=== PATIENT | male | born 1955 | race Caucasian/White ===

== ENCOUNTER 2018-07-21 15:19 | Emergency (ER) | payer OTHER ==
[~2018-07-21] VITALS: Ht 182.9 cm; Wt 76.7 kg
[2018-07-21 16:06] LABS: URINE BILIRUBIN NEGATIVE (Negative); URINE BLOOD NEGATIVE (Negative); URINE CLARITY CLEAR; URINE COLOR YELLOW; URINE GLUCOSE-RANDOM* NEGATIVE (Negative); URINE KETONES NEGATIVE (Negative); URINE LEUKOCYTES NEGATIVE (Negative); URINE NITRITE NEGATIVE (Negative); URINE PROTEIN (DIPSTICK) NEGATIVE (Negative); URINE UROBILINOGEN 0.2 E.U./dl (0.2-1.0)
[2018-07-21 16:14] LABS: AMP/METHAMP Negative (Negative); BARBITURATES Negative (Negative); BENZODIAZEPINES Negative (Negative); COCAINE Negative (Negative); METHADONE Negative (Negative); OPIATES Negative (Negative); PCP Negative (Negative)
[2018-07-21 16:40] LABS: ABSOLUTE NEUTROPHILS 5.2 thou/uL (1.4-8.2); EOSINOPHILS 0.7 % (0.0-3.0); LYMPHOCYTES 18.8 % (24.0-44.0); MCH 33.8 pg (26.0-34.0); MCHC 34.4 g/dL (28.0-37.0); MCV 98.1 fL (80.0-100.0); MONOCYTES 9.7 % (1.0-8.0); PLATELET COUNT 179 thou/uL (150-400); POLYS 69.8 % (36.0-66.0); RBC 2.96 mil/uL (4.50-6.00); RDW 14.2 % (10.5-14.5); WBC 7.4 thou/uL (4.0-11.0)
[2018-07-21 16:53] LABS: ANION GAP 7 mmol/L (7-16); BUN 11 mg/dL (7-18); CHLORIDE 102 mmol/L (98-107); CO2 29 mmol/L (21-32); CREATININE 0.8 mg/dL (0.7-1.3); GLUCOSE 99 mg/dL (74-106); POTASSIUM 4.2 mmol/L (3.5-5.1); SODIUM 138 mmol/L (136-145)
[2018-07-21 16:59] LABS: ALBUMIN 2.5 g/dL (3.4-5.0); SGOT 21 U/L (15-37); SGPT 27 U/L (30-65); TOTAL BILIRUBIN 0.3 mg/dL (<0.1-1.0); TOTAL PROTEIN 6.4 g/dL (6.4-8.2)
[2018-07-21 17:26] LABS: SALICYLATE < 2.8 mg/dL (2.8-20.0)
[2018-07-21 19:34] VITALS: BP 124/39
== END 2018-07-21 19:35 ==
LOC: ER 15:19
PROVIDERS: Physician Assistant
DX: R45.1 Restlessness and agitation (principal); F03.90 Unspecified dementia, unspecified severity, without behavioral disturbance, psychotic disturbance, mood disturbance, and anxiety; G62.9 Polyneuropathy, unspecified; I10 Essential (primary) hypertension; J44.9 Chronic obstructive pulmonary disease, unspecified

== ENCOUNTER 2018-09-25 23:03 | Emergency (ER) | payer OTHER ==
[~2018-09-25] VITALS: Ht 182.9 cm; Wt 88.5 kg
[2018-09-26 00:20] LABS: HEMATOCRIT 29.3 % (42.0-52.0); HEMOGLOBIN 9.8 gm/dL (14.0-18.0); MCHC 33.6 g/dL (28.0-37.0); MCV 89.3 fL (80.0-100.0); PLATELET COUNT 151 thou/uL (150-400); RBC 3.28 mil/uL (4.50-6.00); RDW 14.5 % (10.5-14.5); WBC 4.5 thou/uL (4.0-11.0)
[2018-09-26 00:36] LABS: ANION GAP 6 mmol/L (7-16); BUN 22 mg/dL (7-18); CALCIUM 8.7 mg/dL (8.5-10.1); CHLORIDE 104 mmol/L (98-107); CO2 29 mmol/L (21-32); CREATININE 0.9 mg/dL (0.7-1.3); GLUCOSE 91 mg/dL (74-106); SODIUM 139 mmol/L (136-145)
[2018-09-26 00:44] LABS: TROPONIN-I <0.06 ng/mL (<0.06)
[2018-09-26 01:34] LABS: ABSOLUTE NEUTROPHILS 2.7 thou/uL (1.4-8.2)
[2018-09-26 01:35] LABS: PLATELET ESTIMATE NORMAL
[2018-09-26 02:53] LABS: URINE BILIRUBIN NEGATIVE (Negative); URINE BLOOD NEGATIVE (Negative); URINE CLARITY CLEAR; URINE COLOR YELLOW; URINE GLUCOSE-RANDOM* NEGATIVE (Negative); URINE KETONES 1+ (Negative); URINE LEUKOCYTES-REFLEX NEGATIVE (Negative); URINE NITRITE-REFLEX NEGATIVE (Negative); URINE PROTEIN (DIPSTICK) TRACE (Negative); URINE SPECIFIC GRAVITY 1.025 (1.005-1.035)
[2018-09-26] MEDS ORDERED: VITAMIN D5000 UNIT PO (02:54)
[2018-09-26] MEDS ORDERED: VITAMIN B-12500 MCG PO (02:54)
[2018-09-26] MEDS ORDERED: DEPAKOTE500 MG PO (02:55)
[2018-09-26] MEDS ORDERED: ELIQUIS5 MG PO (02:59)
[2018-09-26] MEDS ORDERED: FOLIC ACID1 MG PO (03:00)
[2018-09-26] MEDS ORDERED: LISINOPRIL5 MG PO (03:00)
[2018-09-26] MEDS ORDERED: NEURONTIN 300300 M1 PO (03:00)
[2018-09-26] MEDS ORDERED: MIRALAX17 GM PO (03:01)
[2018-09-26] MEDS ORDERED: ATIVAN1 MG PO (03:01)
[2018-09-26] MEDS ORDERED: B-1100 MG PO (03:02)
[2018-09-26] MEDS ORDERED: TRAZODONE HCL50 MG PO (03:02)
[2018-09-26] MEDS ORDERED: FLOMAX0.4 MG PO (03:02)
[2018-09-26] MEDS ORDERED: ZYPREXA5 MG PO (03:03)
[2018-09-26 04:58] VITALS: BP 102/48
--- NOTE | 2018-09-26 16:04 | EKG ---
[place] [address] [facility] [address] ELECTROCARDIOGRAM REPORT Name: ANGELALVARADO Room #: DEP DENNISE Hernandez#: [id number] ������������������ Admission: 09/25/18 ������������������ Attend Phys: Discharge: 09/26/18 ������������������ Date of : 51 Report #: [id number] ����������������������������������������������������������������� [id number] THIS REPORT FOR: //name// [facility] ED Test Date: 2018-09-26 Test Time: 02:06:58 Pat Name: ALVARADO ORTIZ Department: Room: Gender: Autism Teacher: Zuri : 1955 Requested By: Burke Mckeon Order Number: [id number] MD: Masoud Howe Measurements Intervals [place] Rate: 61 P: IN: QRS: 82 QRSD: 110 T: 65 QT: 418 QTc: 421 Interpretive Statements Atrial fibrillation Anteroseptal infarct, age indeterminate No previous ECG available for comparison Electronically Signed On 09-26-2018 16:04:01 CDT by Masoud Howe [email or web address] ��������������������������������������������� <ELECTRONICALLY SIGNED> ���������������������������������������� By: Masoud Howe MD ��������������������������������������������� 09/26/18 1604 0206 0206 Masoud Howe MD /LINDSEY
== END 2018-09-26 05:00 | disposition home or self-care (01) ==
LOC: ER 23:03
PROVIDERS: Emergency Medicine
DX: R60.0 Localized edema (principal); F03.90 Unspecified dementia, unspecified severity, without behavioral disturbance, psychotic disturbance, mood disturbance, and anxiety; G62.9 Polyneuropathy, unspecified; I10 Essential (primary) hypertension; J44.9 Chronic obstructive pulmonary disease, unspecified

== ENCOUNTER 2019-04-13 03:22 | Inpatient (IN) | payer OTHER ==
[2019-04-13] VITALS (64 sets, daily range): BP systolic 75–141; BP diastolic 37–63
[~2019-04-13] VITALS: Ht 15.2 cm; Wt 87.8 kg
--- NOTE | ~2019-04-13 | HC ---
[facility] [place] [address] CONSULTATION Name: ALVARADO ORTIZ Room #: 238-P [facility] IN M.R.#: [id number] Admission: 04/13/19 Attend Phys: Tito Queen MD Discharge: Date of : 51 Report #: [id number] THIS REPORT FOR: //name// CC: Tito Calix DATE OF SERVICE: 04/18/2019 CHIEF COMPLAINT: Severe sepsis. HISTORY OF PRESENT ILLNESS: The patient is a 64-year-old male who initially presented to [facility] with severe sepsis on 04/13/2019. He was found unconscious at [facility]. The patient had concern for aspiration pneumonia. Certainly, there is concern for dysphagia. 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 The patient has had acute renal failure. Additionally, has a significant anemia. He required pressors initially for septic shock; however, he has been able to be weaned off these. Did require intubation; however, he has had a good weaning protocol yesterday. Family at this time is actually interested in a palliative type care given his overall presentation, his worsening dementia, delirium and dysphagia rather than pursuing any other kind of permanent feeding tube for which the patient currently has an NG tube. The patient is currently not able to respond significantly as he is intubated. He has had sedation, but currently this is off. PAST MEDICAL HISTORY: Korsakoff dementia, alcohol abuse, history of type 2 diabetes, anemia, atrial fibrillation, and dysphagia. ALLERGIES: No known drug allergies. CODE STATUS: Currently decided to be no code. SOCIAL HISTORY: Sister is his surrogate decision maker at this time. This has been confirmed by case management. FAMILY HISTORY: Noncontributory, although father is currently living. He himself has congestive heart failure and is currently in the hospital. PAST SURGICAL HISTORY: Unknown surgical history. MEDICATIONS: At my arrival, the patient did have propofol, fentanyl, diltiazem, verapamil, Levophed p.r.n., Humalog, Depakote, magnesium, potassium, metoprolol, ampicillin, and Lasix. REVIEW OF SYSTEMS: Unable to obtain due to present medical condition. [facility] [address] [place] [address] CONSULTATION Name: ALVARADO ORTIZ Room #: 238-P [facility] IN ..#: [id number] Admission: 04/13/19 Attend Phys: Tito Queen MD Discharge: Date of : 51 Report #: [id number] PHYSICAL EXAMINATION: VITAL SIGNS: Temperature 38.2, pulse 72, respirations 16, blood pressure 105/67, 98% on assist-control ventilation. GENERAL: He appears to be in no acute distress at this time, not alert. HEENT: After extubation, he had no scleral icterus and conjunctival injection witnessed. CARDIOVASCULAR: Regular rate and rhythm without murmur. LUNGS: Clear to auscultation anteriorly with mechanical breath sounds initially, though after extubation, he had significant secretions auscultated. ABDOMEN: Diminished bowel sounds, not significantly distended. EXTREMITIES: Diffuse edema is noted. LABORATORY DATA: These include Creatinine 0.5, hemoglobin 7.4. ASSESSMENT AND PLAN: 1. Severe sepsis. This is likely secondary to dysphagia. The patient's surrogate decision maker does not wish to pursue any kind of feeding tube. She is wishing to pursue a palliative route. Did discuss the possibility of inpatient hospice and he may be most suited for this transfer as the patient needs a significant medical care at this time. Another option would be long-term care with hospice. Certainly sounds, at home with hospice is not a good option. Did also discuss code status, confirmed DNR status. The patient's sister is desiring extubation in palliative manner. This was performed while I was present. Medications including morphine, Ativan written for comfort as well as discussions with regards to increased secretions, which are normal process as well as apneic episodes. Did demonstrate some mild apnea after the removal of ventilation, but overall appeared to be comfortable. Did have voluntary discussion with the surrogate decision maker with regards to all of these issues. I spent approximately 40 minutes in discussion of advanced care planning. 2. Dysphagia, again this is likely to cause recurrence of aspiration. This is the major reason for his imminent poor prognosis. 3. Dementia, again a major underlying reason for his poor prognosis. This is possibly alcohol related, but certainly given the previously described severity, certainly, he would qualify for hospice care services. 4. Anemia. Family is not wishing to have significant interventions at this time. I agree with palliative care. We will initially wait for stabilization in the hospital, but if stabilized to an extent, the patient could be transferred to an inpatient hospice service. I have discussed this with case management as well as his family. Thank you very much for this consultation. By: [id number] Tony Soares DO /nt
--- NOTE | ~2019-04-13 | EKG ---
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: Joon SANDOVAL : 1955 Requested By: Cleo Michael Order Number: [id number] MD: Measurements Intervals [place] Rate: 69 P: 76 [place]: 141 QRS: 70 QRSD: 92 T: 68 QT: 402 QTc: 431 Interpretive Statements Sinus rhythm Abnormal R-wave progression, late transition Compared to ECG 04/14/2019 04:55:16 Atrial premature complex(es) no longer present repolarization abnormality no longer present Electronically Signed On 04-16-2019 16:44:57 SECOND VP HR ASSESSMENT by Colton Cavazos [email or web address] By: 1 1 [place], [place] /EPI
[~2019-04-13 03:22] MED LIST: ATIVAN1 MG PO; B-1100 MG PO; DEPAKOTE500 MG PO; ELIQUIS5 MG PO; FLOMAX0.4 MG PO; FOLIC ACID1 MG PO; LISINOPRIL5 MG PO; MIRALAX17 GM PO; NEURONTIN 300300 M1 PO; TRAZODONE HCL50 MG PO; VITAMIN B-12500 MCG PO; VITAMIN D5000 UNIT PO; ZYPREXA5 MG PO
[2019-04-13 03:56] LABS: BE(vivo) -6.1 mmol/L (-2 to +3); HCO3 20.6 mmol/L (22.0-26.0); PCO2 45.3 mmHg (35.0-45.0); PO2 102.9 mmHg (80.0-100.0)
[2019-04-13 03:57] LABS: pH 7.275 (7.360-7.450)
[2019-04-13 04:24] LABS: HEMATOCRIT 33.2 % (42.0-52.0); HEMOGLOBIN 10.9 gm/dL (14.0-18.0); MCH 31.8 pg (26.0-34.0); MCHC 32.7 g/dL (28.0-37.0); MCV 97.1 fL (80.0-100.0); PLATELET COUNT 271 thou/uL (150-400); RBC 3.42 mil/uL (4.50-6.00); RDW 14.5 % (10.5-14.5); WBC 18.3 thou/uL (4.0-11.0)
[2019-04-13 04:25] LABS: ANION GAP 9 mmol/L (7-16); BUN 26 mg/dL (7-18); CALCIUM 7.9 mg/dL (8.5-10.1); CHLORIDE 106 mmol/L (98-107); CO2 25 mmol/L (21-32); CREATININE 1.4 mg/dL (0.7-1.3); GLUCOSE 162 mg/dL (74-106); SODIUM 140 mmol/L (136-145)
[2019-04-13 04:31] LABS: ALBUMIN 1.9 g/dL (3.4-5.0); DIRECT BILIRUBIN < 0.1 mg/dL (<0.1-0.3); SGOT 41 U/L (15-37); SGPT 9 U/L (30-65); TOTAL BILIRUBIN 0.4 mg/dL (<0.1-1.0)
--- NOTE | 2019-04-13 04:40 | NUR ---
RECEIVED PERMISSION TO TREAT FROM SISTER SUNNY, WHO HAS POA
[2019-04-13 05:16] LABS: ABSOLUTE NEUTROPHILS 13.9 thou/uL (1.4-8.2)
[2019-04-13 05:17] LABS: ANISOCYTOSIS 1+; PLATELET ESTIMATE NORMAL; POIKILOCYTOSIS 1+
[2019-04-13 05:54] LABS: URINE BILIRUBIN NEGATIVE (Negative); URINE BLOOD 2+ (Negative); URINE CLARITY CLEAR; URINE COLOR YELLOW; URINE GLUCOSE-RANDOM* NEGATIVE (Negative); URINE KETONES NEGATIVE (Negative); URINE LEUKOCYTES-REFLEX NEGATIVE (Negative); URINE NITRITE-REFLEX NEGATIVE (Negative); URINE PROTEIN (DIPSTICK) 1+ (Negative)
[2019-04-13 06:00] LABS: BE(vivo) -4.3 mmol/L (-2 to +3); HCO3 20.7 mmol/L (22.0-26.0); PCO2 37.8 mmHg (35.0-45.0); PO2 240.5 mmHg (80.0-100.0); pH 7.357 (7.360-7.450); sO2 99.5 % (92.0-98.0)
[2019-04-13 06:02] LABS: AMP/METHAMP Negative (Negative); BARBITURATES Negative (Negative); BENZODIAZEPINES Negative (Negative); COCAINE Negative (Negative); METHADONE Negative (Negative); OPIATES Negative (Negative); PCP Negative (Negative)
[2019-04-13 06:12] LABS: BACTERIA-REFLEX 1-9 Few /HPF (None Seen); CRYSTALS None Seen /LPF (None Seen); HYALINE CASTS 4-10 Moderate /LPF (None Seen); MUCUS 0-3 Light strn/LPF (None Seen); SQUAMOUS 4-10 Moderate /LPF (0-3); URINE WBC-REFLEX 0-5 Rare /HPF (0-5)
[2019-04-13 07:15] LABS: MAGNESIUM 1.6 mg/dL (1.8-2.4); TROPONIN-I <0.06 ng/mL (<0.06)
--- NOTE | 2019-04-13 07:28 | NUR ---
PATIENT ARRIVED TO ICU AT 714 WITH EMS, DIGITAL MEDIA SPECIALIST AND RT.
[2019-04-13 08:11] LABS: APTT 26.7 Seconds (24.5-32.8); INR 1.5; PROTIME 15.1 Seconds (9.3-11.4)
[2019-04-13 08:37] LABS: FIBRINOGEN 427.9 mg/dL (210-360)
[2019-04-13 09:32] LABS: CALCIUM 7.8 mg/dL (8.5-10.1); CREATININE 1.1 mg/dL (0.7-1.3)
[2019-04-13 09:36] LABS: POTASSIUM 3.6 mmol/L (3.5-5.1)
--- NOTE | 2019-04-13 11:43 | NUR ---
CONSULTED TO PLACE A CENTRAL LINE FOR A PATIENT ADMITTED TO THE ICU FOR SEPSIS POST INTUBATION. ORDER AND CONSENT NOTED. THE RIGHT IJ WAS WIDLEY PATENT. A #6F TRIPLE LUMEN POWER INJECTABLE JACC CATHETER WAS PLACED PER HOSPITAL POLICY AFTER A BEDSIDE TIMEOUT WAS COMPLETED. LINE WAS 25CM AND ADVANCED TO 5CM EXTERNAL. A STAT CHEST XRAY CONFIRMED LINE IN CORRECT POSITION BY RADIOLOGIST. LINE RELEASED FOR USE
--- NOTE | 2019-04-13 15:19 | NUR ---
INITIAL ASSESSMENT: DESTINEE reviewed chart. Pt was admitted from [facility] due to septic shock/pneumonia. Pt is currently intubated. Pt is on IV abx. Pt with hx of ETOH induced dementia/HTN/COPD. Pt's sister is his DPOA and was notified of pt's admission. regional planner faxed clinical info to [facility] for review. [place] post-acute liaison notified of admission, who states they will be able to accept pt back when he is medically stable. No weekend discharge planned. DESTINEE is following to assist as needed with discharge planning.
--- NOTE | 2019-04-13 16:01 | NUR ---
FAXED CLINICAL UPDATE TO [facility] SPOKE WITH ELEONORA IN ADM SHE RECEIVED UPDATE AND WILL ACCEPT PT BACK ONCE MEDICALLY STABLE. DP TO FOLLOW.
--- NOTE | 2019-04-13 16:11 | EKG ---
[address] [address] ELECTROCARDIOGRAM REPORT Name: ALVARADO ORTIZ Room #: 238-P ADM IN M.R.#: [id number] Admission: 04/13/19 Attend Phys: Tito Queen MD Discharge: Date of : 51 Report #: [id number] THIS REPORT FOR: //name// [facility] ED Test Date: 2019-04-13 Test Time: 04:53:36 Pat Name: ALVARADO ORTIZ Department: Room: 238 P Gender: M Medical Device Sales Consultant: MESFIN : 1955 Requested By: Christiano Jean Order Number: [id number] MD: Colton Cavazos Measurements Intervals [place] Rate: 115 P: DE: QRS: 69 QRSD: 89 T: -69 QT: 281 QTc: 389 Interpretive Statements Atrial fibrillation Poor R wave progression Compared to ECG 09/26/2018 02:06:58 Atrial fibrillation has replaced sinus rhythm Electronically Signed On 04-13-2019 16:11:03 ICE GUARD SKATING RINK by Colton Cavazos [email or web address] <ELECTRONICALLY SIGNED> By: Colton Cavazos MD, [facility] 04/13/19 1611 045 045 Colton Cavazos MD, FACC /EPI
[2019-04-13 17:51] LABS: CALCIUM 8.1 mg/dL (8.5-10.1); CREATININE 0.8 mg/dL (0.7-1.3); POTASSIUM 3.4 mmol/L (3.5-5.1)
[2019-04-13 21:52] LABS: CALCIUM 8.1 mg/dL (8.5-10.1); CREATININE 0.7 mg/dL (0.7-1.3); POTASSIUM 3.3 mmol/L (3.5-5.1)
[2019-04-14] VITALS (93 sets, daily range): BP systolic 85–156; BP diastolic 42–99
--- NOTE | 2019-04-14 05:40 | NUR ---
PT. HEART RHYTHM CHANGED THIS AM AROUND 0430. EKG OBTAINED AND CHARTED, REPORTS A-FIB. NURSE PRACTIOTIONER CALLED, AZAEL RECEIVED. ASSESSMENTS AND VITAL SIGNS CHARTED. MEDICATION TITRATION CHARTED. CONTINUE TO FOLLOW POC. WILL CONTINUE TO MONITOR.
[2019-04-14 05:46] LABS: ALBUMIN 1.6 g/dL (3.4-5.0); CALCIUM 7.9 mg/dL (8.5-10.1); CREATININE 0.7 mg/dL (0.7-1.3); POTASSIUM 3.6 mmol/L (3.5-5.1); TOTAL BILIRUBIN 0.5 mg/dL (<0.1-1.0); TOTAL PROTEIN 5.5 g/dL (6.4-8.2)
[2019-04-14 11:55] LABS: HEMATOCRIT 30.9 % (42.0-52.0); HEMOGLOBIN 10.2 gm/dL (14.0-18.0); MCH 31.4 pg (26.0-34.0); MCHC 32.9 g/dL (28.0-37.0); MCV 95.4 fL (80.0-100.0); RBC 3.24 mil/uL (4.50-6.00); RDW 14.4 % (10.5-14.5); WBC 18.2 thou/uL (4.0-11.0)
[2019-04-14 11:59] LABS: PLATELET COUNT 166 thou/uL (150-400)
[2019-04-14 12:28] LABS: ABSOLUTE NEUTROPHILS 14.7 thou/uL (1.4-8.2); METAMYELOCYTES 3 %; PLATELET ESTIMATE NORMAL
--- NOTE | 2019-04-14 15:59 | NUR ---
PT IS FOLLOWING COMANDS CHANGED SEDATION PER DR. HDZ. DC VERSED AND FENTANYL DRIP AT THIS TIME. FAMILY AT BEDSIDE FOR SUPPORT. PT IS COMFORTALBE. BILATERAL WRIST RESTRAINTS LUNGS ARE COARSE. REMAINS ON VENT AT THIS TIME. BLOOD PRESSURE IS STABLE ON LEVO DRIP FOR BLOOD PRESSURE MANAGEMENT. LUJAN TO DD WITH IRVIN URINE PRESENT. SCDS BILATERAL AND BOOTS ON PT AT THIS TIME. NO ISSUES OR CONCERNS NOTED AT THIS TIME.
--- NOTE | 2019-04-14 21:49 | NUR ---
SEDATION VACATION PERFORMED AT 1930, PT ON PROPOFOL 25MCGS/KG/MIN, TURNED OFF DURING SEDATION VACATION FOR 20 MINS. PT DIDN'T FOLLOW COMMANDS. REDRAWS FROM PAINFUL STIMULI. BITES ON BITE BLOCK. TREMORS NOTED DURING ASSESSMENT, AND PATIENT RESIST TURNS.VSS, LOW GRADE TEMP. COOLING MEASURES IMPLEMENTED. TOLERATING VENT SETTINGS. TITRATING PATIENT OFF LEVOPHED. WILL CONTINUE TO MONITOR.
--- NOTE | 2019-04-14 23:36 | NUR ---
TITRATED OFF LEVOPHED AT 2200. BP REMAINS STABLE. WILL CONTINUE TO MONITOR
[2019-04-15] VITALS (59 sets, daily range): BP systolic 83–148; BP diastolic 39–84
--- NOTE | 2019-04-15 01:00 | NUR ---
PT STARTED ON CARDIZEM AT 0005, HR GOING UP TO THE 130S WITHOUT SUSTAINING. TALKED TO MANOHAR ARIZMENDI ABOUT PT BEING IN AFIB, HR IN 130S, AND STATUS. WILL CONTINUE TO MONITOR. REPORT GIVEN TO NURY LOMBARDO
--- NOTE | 2019-04-15 06:49 | NUR ---
PT WAS AN ER ADMIT. PT IS ADMITTED WITH ACTIVE RECTAL BLEEDING AND IS ASYMPOTOMATIC. SPOUSE AT BEDSIDE. PT IS ALERT BUT CONFUSED AND FORGETFUL. NO SIGN OF DISTRESS NOTED IN PT. ADMISSION ASSESSMENT AND EDUCATION COMPLETED VIA SPOUSE. CONSENT BINDU. PATIENT CONTINUES TO HAVE BRIGHT RED BLOOD WITH CLOT. H&H STABLE. PT IS NPO FOR A COLONOSCOPY THIS AM. VITAL SIGNS STABLE. DENIES ANY FURTHER NEEDS AT THIS TIME.
--- NOTE | 2019-04-15 07:01 | NUR ---
ASSUMED PT CARE AT 0000. PT IS INTUBATED. AND SEDATED. NO SIGN OF DISTRESS NOTED IN PATIENT. ASSESSMENT COMPLETED AND DOCUMENTED. PT IS TURNED. NO SIGN OF DISTRESS NOTED IN PT. PT IS STABLE. DENIES ANY NEEDS AT THIS TIME
[2019-04-15 10:41] LABS: CALCIUM 8.4 mg/dL (8.5-10.1); CREATININE 0.5 mg/dL (0.7-1.3)
--- NOTE | 2019-04-15 11:57 | HC ---
[facility] [place] [address] CONSULTATION Name: ANGELALVARADO Room #: 238-P [facility] IN M.R.#: [id number] Admission: 04/13/19 Attend Phys: Tito Queen MD Discharge: Date of : 51 Report #: [id number] THIS REPORT FOR: //name// CC: Tito Calix DATE OF SERVICE: 04/13/2019 HISTORY OF PRESENT ILLNESS: This is a 64-year-old male patient who presented by EMS from a [facility] after having been found unresponsive. He was intubated as his sats were low and he has been brought to the Intensive Care Unit. He was noted to have a skin tear to his forearm and ulcerations to his sacrum and heel and I have been asked to see him with regard to wound care. He can provide no information about himself as he is intubated. PAST MEDICAL HISTORY: Per the records includes alcohol-induced dementia, withdrawal, delirium, muscle wasting and atrophy, cognitive communication deficits, hyponatremia, neuropathy, hypertension, COPD, benign prostatic hypertrophy, and type 2 diabetes mellitus. SOCIAL HISTORY: Includes a history of drinking 6-12 beers per day, a [id number] history of smoking. FAMILY HISTORY: Unknown. MEDICATIONS: Listed include vitamin D3, vitamin B12, Depakote, Eliquis, folic acid, Neurontin, Zestril, Ativan, MiraLax, Flomax, thiamine, trazodone, Desyrel, Zyprexa. ALLERGIES: None. REVIEW OF SYSTEMS: Unobtainable due to the patient being intubated on a respirator and unable to answer any questions. PHYSICAL EXAMINATION: VITAL SIGNS: Include temperature 37.3, pulse rate 94, respiratory rate 15, blood pressure 75/45. GENERAL: This is a chronically ill-appearing male patient who appears to be mostly sedated. HEENT: Head normocephalic. NECK: Supple. Nose is clear. Orally, he is intubated. LUNGS: Diminished. HEART: Regular rate and rhythm without murmur. ABDOMEN: Soft. EXTREMITIES: Examination of the pelvic region demonstrates a stage 3 pressure ulceration into the sacrum. It is relatively superficial and clean. He has a [facility] [address] [place] [address] CONSULTATION Name: ALVARADO ORTIZ Room #: 238-P [facility] IN M.R.#: [id number] Admission: 04/13/19 Attend Phys: Tito Queen MD Discharge: Date of : 51 Report #: [id number] small ulceration to his left medial heel as well as a moderate sized skin tear to the right forearm. NEUROLOGIC: The patient is sedated and on a respirator and a full neurological assessment is not able to be obtained. LABORATORY DATA: Sodium 141, potassium 3.6, chloride 108, BUN 22, creatinine 1.1, albumin is 1.9. White blood cell count 18.3, hemoglobin of 10.9. CLINICAL IMPRESSION: 1. Skin tear/traumatic wound to the right forearm. 2. Stage 3 pressure ulceration to the sacrum. 3. Unstageable pressure ulcer to the left medial heel. 4. Respiratory failure. 5. Hypertension. 6. History of alcohol abuse. RECOMMENDATIONS: At this point in time, the patient will be placed on low air loss mattress, q.2 hour turning and repositioning, will recommend zinc oxide barrier cream to the sacral gluteal region b.i.d. and p.r.n. He will need PRAFO boots, Aquacel AG and Bordered foam to the left forearm. He will need aggressive nutritional support. I appreciate being asked to see him in consultation. <ELECTRONICALLY SIGNED> By: Michael Felix MD 04/15/19 1157 2139 2357 Michael Felix MD /nt
--- NOTE | 2019-04-15 13:13 | EKG ---
[place] [address] [address] [place] [address] ELECTROCARDIOGRAM REPORT Name: AASHISH FUNG Room #: 238-P ADM IN M.R.#: [id number] Admission: 04/13/19 Attend Phys: Tito Queen MD Discharge: Date of : 51 Report #: [id number] THIS REPORT FOR: //name// [facility] Test Date: 2019-04-14 Test Time: 04:55:16 Pat Name: aashish fung Department: Room: Gender: M Pin Drafter: nickchadd : 1955 Requested By: Order Number: [id number] MD: Colton Cavazos Measurements Intervals [place] Rate: 104 P: [place]: QRS: 70 QRSD: 74 T: 57 QT: 400 QTc: 527 Interpretive Statements Sinus rhythm with frequent and consecutive atrial premature complexes Low voltage, extremity leads Borderline repolarization abnormality Prolonged QT interval No previous ECG available for comparison Electronically Signed On 04-15-2019 13:13:37 UPPER INSPECTOR by Colton Cavazos [email or web address] <ELECTRONICALLY SIGNED> By: Colton Cavazos MD, [facility] 04/15/19 1313 0455 0455 Colton Cavazos MD, FACC /EPI
[2019-04-15 16:26] LABS: HEMATOCRIT 27.6 % (42.0-52.0); HEMOGLOBIN 9.2 gm/dL (14.0-18.0); MCH 31.9 pg (26.0-34.0); MCHC 33.3 g/dL (28.0-37.0); MCV 95.7 fL (80.0-100.0); RBC 2.89 mil/uL (4.50-6.00); RDW 14.6 % (10.5-14.5); WBC 10.1 thou/uL (4.0-11.0)
[2019-04-15 17:12] LABS: MAGNESIUM 1.8 mg/dL (1.8-2.4); POTASSIUM 3.8 mmol/L (3.5-5.1)
--- NOTE | 2019-04-15 18:12 | NUR ---
PATIENT ON LIGHT SEDATION, WEANING TRIAL COMPLETED FOR 20 MINUTES PATIENT DID NOT TOLERATE WELL. TUBE FEEDING STARTED. RESTRAINTS PRESENT. PATIENT ABLE TO OPEN EYES WHEN NAME CALLED AND SLIGHTLY SQUEEZE RIGHT HAND. FAMILY UPDATED ON THE PLAN OF CARE. ELECTROLYTES CLOSELY MONITORED. NO SIGNS OF ACUTE DISTRESS NOTED AT THIS TIME. WILL CONTINUE TO MONITOR.
[2019-04-16] VITALS (49 sets, daily range): BP systolic 85–131; BP diastolic 38–54
[2019-04-16 04:51] LABS: HEMATOCRIT 26.5 % (42.0-52.0); HEMOGLOBIN 8.7 gm/dL (14.0-18.0); MCH 31.8 pg (26.0-34.0); MCHC 32.9 g/dL (28.0-37.0); MCV 96.6 fL (80.0-100.0); PLATELET COUNT 159 thou/uL (150-400); RBC 2.74 mil/uL (4.50-6.00); RDW 14.3 % (10.5-14.5); WBC 8.9 thou/uL (4.0-11.0)
[2019-04-16 05:18] LABS: ALBUMIN 1.3 g/dL (3.4-5.0); CALCIUM 8.1 mg/dL (8.5-10.1); CREATININE 0.5 mg/dL (0.7-1.3); POTASSIUM 3.4 mmol/L (3.5-5.1); TOTAL BILIRUBIN 0.3 mg/dL (<0.1-1.0); TOTAL PROTEIN 5.1 g/dL (6.4-8.2)
[2019-04-16 05:32] LABS: BE(vivo) -3.8 mmol/L (-2 to +3); PCO2 30.5 mmHg (35.0-45.0); PO2 100.6 mmHg (80.0-100.0); pH 7.435 (7.360-7.450); sO2 97.8 % (92.0-98.0)
[2019-04-16 06:10] LABS: ABSOLUTE NEUTROPHILS 7.3 thou/uL (1.4-8.2); PLATELET ESTIMATE NORMAL
--- NOTE | 2019-04-16 07:25 | NUR ---
CHART CHECK. REPORT GIVEN TO MUNIRA TODD. PT NOT PROGRESSING TOWARDS GOAL.
--- NOTE | 2019-04-16 09:25 | NUR ---
Recommend goal tube feed of glucerna 1.2 at 65ml/hr while pt on propofol. Defer any fluid needs to physician.
--- NOTE | 2019-04-16 11:28 | 2DMMODE ---
[facility] [address] [place] [address] 2 D/M-MODE ECHOCARDIOGRAM Name: ANGELALVARADO Room #: 238-P ADM IN M.R.#: [id number] Admission: 04/13/19 Attend Phys: Jamaal Mcpherson Discharge: Date of : 51 Report #: [id number] THIS REPORT FOR: //name// APPROVED REPORT Study performed: 04/16/2019 09:30:42 EXAM: Comprehensive 2D, Doppler, and color-flow Echocardiogram Patient Location: ICU Room #: 238 Status: routine BSA: 1.89 HR: 71 bpm BP: 104/46 mmHg Rhythm: NSR Other Information Study Quality: Adequate Technically limited study due to inability to position patient. Indications COPD Atrial Fibrillation Hypertension/HDD 2D Dimensions RVDd: 29.67 mm IVSd: 10.97 (7-11mm) LVOT Diam: 22.40 (18-24mm) LVDd: 30.87 mm PWd: 10.92 (7-11mm) LVDs: 21.99 (25-40mm) Aortic Root: 30.94 mm IVC: 21.00 mm Volumes Left Atrial Volume (Systole) Single Plane 4CH: 29.48 mL Single Plane 2CH: 22.26 mL LA ESV Index: 17.00 mL/m2 Aortic Valve AoV Peak Te.: 1.35 m/s AO Peak Gr.: 7.28 mmHg LVOT Max P.35 mmHg LVOT Max V: 0.92 m/s DASIA Vmax: 2.67 cm2 [facility] [address] [place] [address] 2 D/M-MODE ECHOCARDIOGRAM Name: ALVARADO ORTIZ Room #: 238-P [facility] IN M.R.#: [id number] Admission: 04/13/19 Attend Phys: Jamaal Mcpherson Discharge: Date of : 51 Report #: [id number] Mitral Valve E/A Ratio: 1.1 MV Decel. Time: 230.90 ms MV E Max Te.: 0.94 m/s MV A Te.: 0.83 m/s MV PHT: 66.96 ms IVRT: 106.11 ms Pulmonary Valve PV Peak Te.: 1.07 m/s PV Peak Gr.: 4.57 mmHg Pulmonary Vein P Vein S: 0.49 m/s P Vein A: 0.34 m/s P Vein D: 0.44 m/s P Vein A Dur.: 133.8 msec P Vein S/D Ratio: 1.11 Tricuspid Valve TR Peak Te.: 3.13 m/s RAP Estimate: 5.00 mmHg TR Peak Gr.: 39.17 mmHg PA Pressure: 45.00 mmHg Left Ventricle The left ventricle is normal size. There is normal LV segmental wall motion. Mild concentric left ventricular hypertrophy. The left ventricular systolic function is normal. The left ventricular ejection fraction is within the normal range. LVEF is 60%. Right Ventricle The right ventricle is normal size, probable RVH The right ventricular systolic function is normal. Atria The left atrium size is normal. The right atrium size is normal. Aortic Valve Aortic valve leaflets are mildly thickened and calcified. No aortic regurgitation is present. There is no aortic valvular stenosis. Mitral Valve The mitral valve is normal in structure. There is no mitral valve regurgitation noted. No evidence of mitral valve stenosis. Tricuspid Valve The tricuspid valve is normal in structure. Trace to mild tricuspid [facility] [address] [place] [address] 2 D/M-MODE ECHOCARDIOGRAM Name: ALVARADO ORTIZ Room #: 238-P ADM IN M.R.#: [id number] Admission: 04/13/19 Attend Phys: Jamaal Mcpherson Discharge: Date of : 51 Report #: [id number] regurgitation. PAP is estimated at 45 mmHg. Pulmonic Valve Pulmonic valve is not well visualized. Great Vessels The aortic root is normal in size. IVC is upper limits of normal in size and collapses >50% with inspiration. Pericardium There is no pericardial effusion. <Conclusion> The left ventricular systolic function is normal. There is normal LV segmental wall motion. Mild concentric left ventricular hypertrophy. LVEF is 60%. The right ventricle is normal size, probable RVH Aortic valve leaflets are mildly thickened and calcified. No aortic regurgitation or stenosis. The mitral valve is normal in structure. No mitral valve regurgitation. Pulmonary artery pressure of approximately 45 mmHg. There is no pericardial effusion. <ELECTRONICALLY SIGNED> By: Colton Cavazos MD, FACC 04/16/19 1128 1128 27 Colton Cavazos MD, FACC /INF
--- NOTE | 2019-04-16 12:47 | NUR ---
DESTINEE reviewed chart and spoke with nursing and attending physician. Pt remains in ICU and on the vent. Pt is poorly tolerating cpap trials. No family present at bedside. DESTINEE spoke with pt's sister, Gema, via phone. Introduced role of DESTINEE. Per Gema, pt reports that pt has been at [facility] since June of this year. Pt started as short-term skilled and then has transitioned to intermediate care. Pt was in the aman-psych unit at [facility] in July for about a month. Pt's sister states that pt has declined since that time. Pt used to be ambulatory, but is now primarily w/c bound. SW confirmed with pt's sister that the plan is for pt to return to [facility] when medically stable. office workforce planner to fax clinical updates to [place] for review. DESTINEE updated [facility] post-acute liaison. DESTINEE is following to assist as needed with discharge planning.
--- NOTE | 2019-04-16 14:28 | NUR ---
FAXED CLINICAL UPDATE TO [facility] RECEIVED CONFIRMATION AND LEFT MSG WITH SUNNI IN ADM. FAXED REFERRAL TO [facility] SPOKE WITH ELEONORA IN ADM SHE RECEIVED UPDATE. DP TO FOLLOW.
--- NOTE | 2019-04-16 16:45 | EKG ---
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 SANDOVAL : 1955 Requested By: Cleo Michael Order Number: [id number] MD: Colton Cavazos Measurements Intervals [place] Rate: 69 P: 76 [place]: 141 QRS: 70 QRSD: 92 T: 68 QT: 402 QTc: 431 Interpretive Statements Sinus rhythm Abnormal R-wave progression, late transition Compared to ECG 04/14/2019 04:55:16 Atrial premature complex(es) no longer present repolarization abnormality no longer present Electronically Signed On 04-16-2019 16:44:57 HEAD GOLF COACH by Colton Cavazos [email or web address] <ELECTRONICALLY SIGNED> By: Colton Cavazos MD, [facility] 04/16/19 1644 1 09 Colton Cavazos MD, [facility] /EPI
--- NOTE | 2019-04-16 19:08 | NUR ---
ASSESSMENTS AND INTERVENTIONS DOCCUMENTED. PATIENT RESTING. FAMILY UPDATED ON POC. PATIENT REMAINS INTUBATED AND SEDATED. THE POC OF CARE IS TO CONTINUE TO GIVE ABX AND MONITOR RESP. STATUS.
[2019-04-17] VITALS (45 sets, daily range): BP systolic 83–132; BP diastolic 33–71
[2019-04-17 05:35] LABS: CALCIUM 8.3 mg/dL (8.5-10.1); CREATININE 0.5 mg/dL (0.7-1.3); POTASSIUM 3.4 mmol/L (3.5-5.1)
--- NOTE | 2019-04-17 06:47 | NUR ---
CHART CHECK. REPORT GIVEN TO ONCOMING NURSE. PT NOT PROGESSING TOWARDS GOAL. CONTINUE TO FOLLOW PLAN OF CARE.
[2019-04-17 12:50] LABS: MAGNESIUM 1.9 mg/dL (1.8-2.4); POTASSIUM 3.6 mmol/L (3.5-5.1)
[2019-04-17 12:54] LABS: PREALBUMIN 6.8 mg/dL (18.0-35.7)
[2019-04-17 12:55] LABS: % SATURATION 18 % (20-39); IRON 23 ug/dL (65-175); TIBC 126 ug/dL (250-450)
[2019-04-17 13:21] LABS: FOLIC ACID 18.4 ng/mL (8.6-58.9)
[2019-04-17 13:36] LABS: BE(vivo) 1.4 mmol/L (-2 to +3); HCO3 24.7 mmol/L (22.0-26.0); PO2 83.5 mmHg (80.0-100.0); pH 7.479 (7.360-7.450); sO2 96.9 % (92.0-98.0)
--- NOTE | 2019-04-17 18:00 | NUR ---
ASSESSMENTS AND INTERVENTIONS DOCCUMENTED. PATIENT REMAINS INTUBATED AND SEDATED. PATIENT DID WELL ON WEANING TRIALS PER LAB VALUES AND VENTILATOR SETTINGS. FAMILY EDUCATED ABOOUT EXTUBATION PER DR. ROLON BUT WANTED TO WAIT UNTIL 04/18/19 TO EXTUBATE AFTER TALKING TO HER FAMILY ABOUT POC. PATIENT RESTING QUIETLY.
[2019-04-17 22:10] LABS: ADENOVIRUS Negative (Negative); INFLUENZA A Negative (Negative); INFLUENZA B Negative (Negative); METAPNEUMOVIRUS Negative (Negative); PARAINFLUENZA 1 Negative (Negative); PARAINFLUENZA 2 Negative (Negative); PARAINFLUENZA 3 Negative (Negative); RHINOVIRUS Negative (Negative); RSV A Negative (Negative); RSV B Negative (Negative)
[2019-04-18] VITALS (18 sets, daily range): BP systolic 92–119; BP diastolic 41–59
[2019-04-18 05:32] LABS: CALCIUM 8.3 mg/dL (8.5-10.1); CREATININE 0.5 mg/dL (0.7-1.3); POTASSIUM 3.5 mmol/L (3.5-5.1)
[2019-04-18 05:33] LABS: HEMATOCRIT 23.2 % (42.0-52.0); HEMOGLOBIN 7.7 gm/dL (14.0-18.0); MCH 31.6 pg (26.0-34.0); MCV 95.6 fL (80.0-100.0); RBC 2.43 mil/uL (4.50-6.00); RDW 14.1 % (10.5-14.5)
--- NOTE | 2019-04-18 06:37 | NUR ---
No event tonight. Pt remains stable. Continue to tolerate TF, no residual indicates. Continue working toward goals.
[2019-04-18 10:33] LABS: HEMATOCRIT 22.2 % (42.0-52.0); HEMOGLOBIN 7.4 gm/dL (14.0-18.0)
--- NOTE | 2019-04-18 12:42 | NUR ---
CALLED DR. FAGAN TO NOTIFY OF CONSULT TO DR. MADDOX. FAMILY WANTS TO EXTUBATE AND MAKE PT PALLITIVE CARE.
--- NOTE | 2019-04-18 14:59 | NUR ---
[employer]olar [employer] visited with the pt's sister Martha at bedside. Pt is now a DNR and plans to extubate and initiate hospice care are being discussed. Dr. Pazrs to meet with her this afternoon. She indicates that she has spoken with the pt's only child, who is disabled and he is in agreement. She is his only sibling and his father is currently in the hospital at [place]. Solar [employer] has requested that [employer] fax us a copy of her medical DPOA document. She is interested in seeing if [facility] in [place], [place] has inpt hospice unit as that would be closer to family. Emotional support provided. Message left for admissions at [facility]. Will follow.
--- NOTE | 2019-04-18 18:23 | NUR ---
PT SISTER WANTED TO START PALLITIVE CARE TODAY. PT EXTUBATED AT 1645. EMOTIONAL SUPPORT GIVEN. COMFORT CARE FOR PT.
[2019-04-19] VITALS: BP 118/66
[2019-04-19 04:00] VITALS: BP 112/60
--- NOTE | 2019-04-19 08:25 | NUR ---
PATIENT ON COMFORT MEASURES, APPEARS COMFORTABLE AND VITALS STABLE. OPENS EYES BUT DOESN'T FOLLOW COMMANDS. PATIENT WILL BE MOVING TO RM [id number].
--- NOTE | 2019-04-19 10:04 | NUR ---
DISCHARGE PLANNING. HOSPICE RECOMMENDED, PATIENT REFERRAL FAXED TO [facility] PER REQUEST. CALL PLACED TO [facility]. SPOKE WITH ALISON. ALISON TO HAVE HONE OPERATOR VISIT WITH FAMILY AT BEDSIDE SOON POSSIBLE THIS MORNING. UNIT SW NOTIFIED. FOLLOWING TO ASSIST.
[2019-04-19 10:17] VITALS: BP 151/59
[2019-04-19] MEDS ORDERED: MSL20MG/ML PO (11:58)
[2019-04-19] MEDS ORDERED: HALDOL5 MG/1 ML SUBLING (11:58)
[2019-04-19] MEDS ORDERED: LORAZEPAM I2 MG/1 ML PO (11:58)
--- NOTE | 2019-04-19 12:35 | NUR ---
CARE TEAM INDICATED THAT PT AND SISTER ARE INTERESTED IN PT GOING TO [facility]. REFERRAL WAS SENT THIS AM AND ALISON IN ADMISSIONS HAD A NURSE COME AND EVALUATE PT. CM NOTIFIED PT'S SISTER AND SHE INDICATED THAT SHE WOULD BE HERE AT 11:30AM. NURSE IS VISITING WITH PT AND FAMILY AT THIS MOMENT. CM COMPLETED [facility] FORM. OUT OF THE HOSPITAL DNR FORM COMPLETED AND ON CHART. CM TO PROVIDE PT'S SISTER WITH PHONE NUMBER FOR THE WHOLE PERSON FOR RESOURCES FOR PT'S DISABLED ADULT CHILD. CM TO FOLLOW INDICATED WITH DC PLANNING.
--- NOTE | 2019-04-19 13:18 | NUR ---
BRANDEE NURSE WITH [facility] ASSESSED AND INDICATED THAT THEY ARE ABLE TO ACCEPT PT FOR ADMISSION THIS DAY. CM COMPLETED [facility] FORM FAXED AND ARRANGED TRANSPORT FOR [id number]. CHART COPY ORDERED. ORDERS TO BE FAXED. REPORT TO BE CALLED TO . PT'S SISTER IS AWARE AND AGREEABLE. NO OTHER CM INTERVENTION INDICATED. CASE CLOSED.
[2019-04-19 15:37] VITALS: BP 124/44
[2019-04-19 20:08] LABS: METANEPHRINE-PL 28 pg/mL (0-62); NORMETANEPHRINE - PL 238 pg/mL (0-145)
== END 2019-04-19 16:54 | disposition hospice, inpatient (51) | DRG 870 ==
LOC: ER 03:22 → EROBS 05:32 → ICU 05:32 → 4W 04-19 09:24
PROVIDERS: Emergency Medicine; Hospitalist; Internal Medicine; Internal Medicine Pulmonary Disease; Nurse Practitioner Acute Care; Pediatrics; Specialist; ADMIT Hospitalist
PROC: 5A1955Z Respiratory Ventilation, Greater than 96 Consecutive Hours (ICD-10-PCS; principal; 2019-04-13)
PROC: 0BH17EZ Insertion of Endotracheal Airway into Trachea, Via Natural or Artificial Opening (ICD-10-PCS; 2019-04-13)
PROC: 02HV33Z Insertion of Infusion Device into Superior Vena Cava, Percutaneous Approach (ICD-10-PCS; 2019-04-13)
DX: A41.9 Sepsis, unspecified organism (principal); L89.153 Pressure ulcer of sacral region, stage 3; J69.0 Pneumonitis due to inhalation of food and vomit; R65.21 Severe sepsis with septic shock; J96.01 Acute respiratory failure with hypoxia; G92 Toxic encephalopathy; E43 Unspecified severe protein-calorie malnutrition; N17.9 Acute kidney failure, unspecified; E87.1 Hypo-osmolality and hyponatremia; M62.82 Rhabdomyolysis; J44.0 Chronic obstructive pulmonary disease with (acute) lower respiratory infection; N40.0 Benign prostatic hyperplasia without lower urinary tract symptoms; I10 Essential (primary) hypertension; L89.620 Pressure ulcer of left heel, unstageable; R13.10 Dysphagia, unspecified; D64.9 Anemia, unspecified; F10.97 Alcohol use, unspecified with alcohol-induced persisting dementia; Z66 Do not resuscitate; I48.91 Unspecified atrial fibrillation; Y95 Nosocomial condition; E87.6 Hypokalemia; E11.40 Type 2 diabetes mellitus with diabetic neuropathy, unspecified; Z87.891 Personal history of nicotine dependence; Z68.38 Body mass index [BMI] 38.0-38.9, adult; Z99.3 Dependence on wheelchair
CPT/HCPCS: 10078